=== PATIENT | female | born 1995 | race Caucasian/White ===

== ENCOUNTER 2022-07-25 21:07 | Emergency (ER) | payer OTHER ==
[~2022-07-25] VITALS: Ht 165.1 cm; Wt 90.7 kg
[2022-07-25] MEDS ORDERED: diphenhydrAMINE 50 MG/1 ML VIAL IV ONE (21:15)
[2022-07-25] MEDS ORDERED: HALOPERIDOL LACTATE 5 MG/1 ML VIAL IV ONE (21:15)
[2022-07-25] MEDS ORDERED: LORAZEPAM 2 MG/1 ML VIAL IV ONE (21:15)
--- NOTE | 2022-07-25 21:30 | NUR ---
[facility] placed patient on a 5150 HOLD for DTO.
[2022-07-25] MEDS ORDERED: diphenhydrAMINE 50 MG/1 ML VIAL ONE (21:33)
[2022-07-25] MEDS ORDERED: HALOPERIDOL LACTATE 5 MG/1 ML VIAL ONE (21:33)
[2022-07-25] MEDS ORDERED: LORAZEPAM 2 MG/1 ML VIAL ONE (21:34)
[2022-07-25 21:41] LABS: CARBON DIOXIDE 27 mmol/L (21-32); CHLORIDE 105 mmol/L (98-107); CREATININE 0.8 mg/dL (0.6-1.3); GLUCOSE 86 mg/dL (74-106); POTASSIUM 3.6 mmol/L (3.5-5.1); UREA NITROGEN, BLOOD 5 mg/dL (7-18)
[2022-07-25 21:47] LABS: ALANINE AMINOTRANSFERASE 74 U/L (14-59); ALKALINE PHOSPHATASE 73 U/L (50-136); ASPARTATE AMINOTRANSFERASE 38 U/L (15-37); BILIRUBIN,DIRECT < 0.1 mg/dL (0.0-0.2); BILIRUBIN,TOTAL 0.2 mg/dL (0.2-1.0); CREATINE KINASE, TOTAL 525 U/L (26-192); TOTAL PROTEIN, SERUM 7.5 g/dL (6.4-8.2)
[2022-07-25 21:48] LABS: ACETAMINOPHEN < 2.0 ug/mL (10-30)
[2022-07-25 21:50] LABS: ETHANOL 7 MG/DL (0-0)
--- NOTE | 2022-07-25 21:52 | NUR ---
sent erik to lab.
[2022-07-25 22:02] LABS: HEMATOCRIT 38.6 % (31.2-41.9); MEAN CORPUSCULAR HEMOGLOBIN 29.3 uug (24.7-32.8); MEAN CORPUSCULAR VOLUME 86.7 fL (75.5-95.3); PLATELET COUNT (AUTO) 321 K/uL (179-408)
[2022-07-25 22:11] LABS: *BILIRUBIN,URIN NEGATIVE (NEGATIVE); *BLOOD, URINE NEGATIVE (NEGATIVE); *CLARITY,URINE CLEAR (CLEAR); *COLOR,URINE YELLOW (YELLOW); *KETONES,URINE NEGATIVE (NEGATIVE); *UROBILINOGEN,URINE 0.2 E.U./dl (NORMAL); LEUKOCYTE ESTERASE ,URINE NEGATIVE (NEGATIVE); NITRITE, URINE NEGATIVE (NEGATIVE); UGLUCOSE NEGATIVE (NEGATIVE)
[2022-07-25 22:12] LABS: *URINE HCG, QUAL NEGATIVE (NEGATIVE)
[2022-07-25 22:17] LABS: *AMPHETAMINE, URINE NEGATIVE (NEGATIVE); *CANNABINOID, URINE POSITIVE (NEGATIVE); *COCCAINE, URINE NEGATIVE (NEGATIVE); *OPIATE, URINE NEGATIVE (NEGATIVE); *PHENCYCLIDINE SCREEN,URINE NEGATIVE (NEGATIVE)
--- NOTE | 2022-07-25 22:45 | NUR ---
Patient sleeping on gurny with no distress noted.
--- NOTE | 2022-07-25 23:52 | NUR ---
Patient medically cleared By Dr Rayo.
--- NOTE | 2022-07-26 00:15 | NUR ---
Patient awake, answering questions. Called Jett from [employer], who states Jolanta Hopson text her that patient will be interview in the AM.
[2022-07-26] MEDS ORDERED: diphenhydrAMINE 50 MG/1 ML VIAL ONE (00:18)
[2022-07-26] MEDS ORDERED: HALOPERIDOL LACTATE 5 MG/1 ML VIAL ONE ×2 (00:18→01:42)
[2022-07-26] MEDS ORDERED: LORAZEPAM 2 MG/1 ML VIAL ONE (00:18)
--- NOTE | 2022-07-26 00:20 | NUR ---
Patient became agitated, yelling at staff member. Recieved orders and carried out.
[2022-07-26] MEDS ORDERED: HALOPERIDOL LACTATE 5 MG/1 ML VIAL IV ONE ×2 (00:30→01:45)
[2022-07-26] MEDS ORDERED: LORAZEPAM 2 MG/1 ML VIAL IV ONE (00:30)
[2022-07-26] MEDS ORDERED: diphenhydrAMINE 50 MG/1 ML VIAL IV ONE (00:30)
--- NOTE | 2022-07-26 01:40 | NUR ---
Patient awake, screaming and cursing. Dr Rayo made aware.
--- NOTE | 2022-07-26 04:07 | NUR ---
Patient intermittenly sleeping. No distress noted.
--- NOTE | 2022-07-26 08:30 | NUR ---
Discontinue r and l wrist restraints, pt was calm and cooperative, in stable condition. Breakfast was given, finished 100% of the meal. Called [facility] Galleg[facility] for re-evaluation of the pt, will arrive in 1 hr. Called Deepa Castellanos for pt.'s placement. Will continue to follow-up.
--- NOTE | 2022-07-26 09:30 | NUR ---
STEPHANIE faxed over the patients clinical information to [facility] (fax: [phone]), [facility] (fax:[phone]), [facility] (fax: [phone]), and [facility] in [place] ([phone]).
--- NOTE | 2022-07-26 10:11 | NUR ---
ONELIA Silverman at [facility], stated that they will offer a bed to pt around Noon, after she is off restraints for 4 hours. They WCB.
--- NOTE | 2022-07-26 11:06 | NUR ---
Called [facility] for transport to [place]. ETA: 1230 hrs
--- NOTE | 2022-07-26 12:10 | NUR ---
[facility] rep: Andra [phone]: James Going to -- [facility] Unit room #255A Report: [phone]
--- NOTE | 2022-07-26 12:22 | NUR ---
Called [facility] about pt.'s transport. Informed Marc from [facility] that pt needs to be there not before 2pm d/t bed availability. Transport will arrive and pick-up the pt at around 1330 to 1400. Pt. made aware.
--- NOTE | 2022-07-26 13:50 | NUR ---
IV removed intact, site okay, bandaged.
--- NOTE | 2022-07-26 14:01 | NUR ---
report called to ONELIA Sen at [facility]. Gave pt chart and report to bone crusher. Pt transported.
== END 2022-07-26 14:12 ==
LOC: ER 21:07
DX: F23 Brief psychotic disorder (principal); Z20.822 Contact with and (suspected) exposure to COVID-19; D72.829 Elevated white blood cell count, unspecified; R74.8 Abnormal levels of other serum enzymes; Z91.51 Personal history of suicidal behavior; R03.0 Elevated blood-pressure reading, without diagnosis of hypertension
CPT/HCPCS: 80076; 80048; 81003; 82550; 84703; 85025; 87426; 36415; 93005; 99285; 96374; 96375; 83605; 80299; 80320; 80307; 96376; J1200 ×2; J1630 ×3; J2060 ×2; G0480